=== PATIENT | male | born 1995 | race Caucasian/White ===

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

== ENCOUNTER → 2017-03-27 | Outpatient (CLI) | payer OTHER | LOC: FIMAGING 10:07 | PROVIDERS: ATTEND Otolaryngology | DX: R59.9 Enlarged lymph nodes, unspecified (principal) ==